=== PATIENT | female | born 1990 | race Caucasian/White ===

== ENCOUNTER 2016-09-28 00:35 | Emergency (ER) | payer BC ==
[~2016-09-28] VITALS: Ht 154.9 cm; Wt 65.8 kg
--- NOTE | ~2016-09-28 | CR7 ---
[facility]. [facility] A Service of [facility] RADIOLOGY TEXT RESULTS PATIENT: NOEL HALE LOCATION: SED : 89 UNIT #: [id number] AGE: [address]: Jhony Zapata MD SEX: F ORDER DR: [id number] [address] [address] [id number] MR#: [id number] Acc #: [id number] NAME: NOEL HALE : 1990 SEX: F STUDY DATE/TIME: 09/28/2016 2:55 UNIT: SED ROOM: STUDY DESCRIPTION: CR Abdomen Single AP View Attending Physician: Jhony Zapata M.D. Ordering Physician: Jhony Zapata M.D. Primary Care Physician: No Primary Care Physician MEDICAL IMAGING REPORT This report is preliminary unless electronic signature is present. EXAM AP abdomen. Date: 09/28/2016. HISTORY Left flank pain and frequent urination since yesterday. COMPARISON None. FINDINGS Nonspecific but nonobstructive appearing bowel gas pattern with mild ascending colonic stool burden. No free air, pneumatosis, organomegaly or abnormal soft tissue calcification is seen. Osseous structures normal. IMPRESSION No acute findings in the abdomen. Dictated by... Manisha Mcnulty M.D. THIS IS AN ELECTRONICALLY VERIFIED REPORT Manisha Mcnulty M.D. at 09/28/2016 9:51 PM [facility]/grecia TD: 09/28/2016 10:19 JOB #: [id number] MEDICAL IMAGING REPORT Page 1 of 1
[~2016-09-28 00:35] MED LIST: AMOXICILLIN875 MG PO; BACTRIM DS TABL1 TA1 PO; FLEXERIL10 M1 PO; FLEXERIL10 MG PO; FLONASE 0.05% N16 G1; IBUPROFEN800 MG PO; MEDROL PO; MEDROL4 MG/DOSE- PO; MOTRIN400 M1 PO; NAPROXEN PO; NO MEDICATIONS; PYRIDIUM PO; TORADOL10 MG PO; TYLENOL #3 PO; ULTRAM PO; ZANAFLEX4 M1 PO
[2016-09-28 02:11] LABS: URINE SOURCE CLEAN CATCH
[2016-09-28 02:13] LABS: URINE APPEARANCE CLEAR; URINE BILIRUBIN NEG (NEG); URINE BLOOD NEG (NEG); URINE COLOR YELLOW; URINE GLUCOSE NEG (NORM); URINE KETONE NEG (NEG); URINE LEUKOCYTE ESTERASE NEG (NEG); URINE NITRATE NEG (NEG); URINE PH 5.5 (5-8); URINE PROTEIN NEG (NEG); URINE SPECIFIC GRAVITY >=1.030 (1.003-1.035); URINE UROBILINOGEN 0.2 MG/DL (NORM)
[2016-09-28 02:14] LABS: MICRO INDICATED? NO
== END 2016-09-28 03:59 | disposition home or self-care (01) ==
LOC: SED 00:35
PROVIDERS: Emergency Medicine
DX: R10.32 Left lower quadrant pain (principal); R35.0 Frequency of micturition
CPT/HCPCS: 74000; 81003; 84703; 99284